=== PATIENT | female | born 1995 | race Caucasian/White ===

== ENCOUNTER 2018-09-01 23:58 | Emergency (ER) | payer BC ==
[~2018-09-01] VITALS: Ht 160 cm; Wt 118.2 kg
[2018-09-02 00:03] VITALS: TEMP 97.9
[2018-09-02 01:23] LABS: BASO # 0.1 (0.0-0.2); BASO % 0.5 % (0.0-2.0); EOS # 0.2 (0.0-0.7); GRAN # 5.7 (1.4-6.5); GRAN % 61.4 % (42.2-75.2); HEMATOCRIT 36.5 % (37.0-47.0); HEMOGLOBIN 11.6 g/dl (12.5-16.0); LYMPH # 2.7 (1.2-3.4); LYMPH % 29.1 % (20.0-51.0); MEAN CELL VOLUME 84 fl (80.0-100.0); MEAN CORPUSCULAR HEMOGLOBIN 27 pg (27.0-31.0); MEAN CORPUSCULAR HGB CONC 32 g/dl (33.0-37.0); MEAN PLATELET VOLUME 9.6 fl (7.4-10.4); MONO # 0.6 (0.1-0.6); MONO % 6.9 % (1.7-9.3); PLATELET COUNT 323 K/mm3 (130-400); RED BLOOD COUNT 4.33 M/mm3 (4.10-5.30)
[2018-09-02 01:45] LABS: ALBUMIN 4.3 gm/dL (3.5-5.0); BILIRUBIN,TOTAL 0.3 mg/dL (0.0-1.0); CALCIUM 8.9 mg/dL (8.4-10.2); CREATININE, serum 0.68 mg/dL (0.52-1.25); MAGNESIUM 2.2 mg/dL (1.6-2.3); PHOSPHOROUS 3.4 mg/dL (2.5-4.5); POTASSIUM 3.5 mmol/L (3.4-5.0); TOTAL PROTEIN 7.7 gm/dL (6.4-8.2)
[2018-09-02 02:14] LABS: TSH w REFLEX 8.8 uIU/mL (0.465-4.680)
[2018-09-02 03:37] VITALS: BP 112/91; PULSE 83
== END 2018-09-02 03:42 | disposition home or self-care (01) ==
LOC: COL.ER 23:58
PROVIDERS: Emergency Medicine
DX: R00.2 Palpitations (principal)
CPT/HCPCS: J7030

== ENCOUNTER 2020-10-08 10:57 | Inpatient (IN) | payer BC ==
[~2020-10-08] VITALS: Ht 167.6 cm; Wt 126.4 kg
[2020-10-08] VITALS (17 sets, daily range): BP systolic 81–139; BP diastolic 37–78; PULSE 69–97; TEMP 97.5–98.3
[2020-10-08] MEDS ORDERED: PRENATAL TABLET PO (11:57)
[2020-10-08] MEDS ORDERED: INDERAL 10MG10 MG PO (11:58)
[2020-10-08 12:15] LABS: BASO % 0.2 % (0.0-2.0); EOS % 0.2 % (0-4.0); GRAN # 9.2 (1.4-6.5); GRAN % 80.8 % (42.2-75.2); LYMPH # 1.6 (1.2-3.4); LYMPH % 14.2 % (20.0-51.0); MEAN CELL VOLUME 93 fl (80.0-100.0); MEAN CORPUSCULAR HEMOGLOBIN 31 pg (27.0-31.0); MEAN CORPUSCULAR HGB CONC 33 g/dl (33.0-37.0); MEAN PLATELET VOLUME 9.6 fl (7.4-10.4); MONO # 0.5 (0.1-0.6); MONO % 4.2 % (1.7-9.3); PLATELET COUNT 336 K/mm3 (130-400); RED BLOOD COUNT 3.85 M/mm3 (4.10-5.30); REDCELL DISTRIBUTION WIDTH-CV 13.2 % (11.5-14.5)
[2020-10-08 12:17] LABS: HEMATOCRIT 35.9 % (37.0-47.0)
[2020-10-08] MEDS ORDERED: IBU800 M1 PO (13:58)
[2020-10-08] MEDS ORDERED: PERCOCET 325 MG1 TA2 PO (13:58)
[2020-10-09 00:15] VITALS: BP 119/62; PULSE 63; TEMP 97.9
[2020-10-09 05:20] VITALS: BP 110/63; PULSE 75; TEMP 97.8
[2020-10-09 06:45] VITALS: BP 119/60; PULSE 68; TEMP 97.3
[2020-10-09 11:40] VITALS: BP 120/47; PULSE 75; TEMP 97.9
== END 2020-10-09 16:00 | disposition home or self-care (01) | DRG 786 ==
LOC: OB 10:57
PROVIDERS: ADMIT Student in an Organized Health Care Education/Training Program
PROC: 10D00Z1 Extraction of Products of Conception, Low, Open Approach (ICD-10-PCS; principal; 2020-10-08)
DX: O41.03X0 Oligohydramnios, third trimester, not applicable or unspecified (principal); O99.42 Diseases of the circulatory system complicating childbirth; I47.1 Supraventricular tachycardia; Z37.0 Single live birth; O32.1XX0 Maternal care for breech presentation, not applicable or unspecified; O99.824 Streptococcus B carrier state complicating childbirth; O99.214 Obesity complicating childbirth; E66.9 Obesity, unspecified; Z3A.36 36 weeks gestation of pregnancy
CPT/HCPCS: J0690; J1885; J2370; J2405; J2590; J7120

== ENCOUNTER → 2020-10-25 | Outpatient (CLI) | payer BC ==
[~2020-10-25] MED LIST: IBU800 M1 PO; INDERAL 10MG10 MG PO; PERCOCET 325 MG1 TA2 PO; PRENATAL TABLET PO
--- NOTE | 2020-10-25 15:42 | NUR ---
Pt, Vanesa Ware, presents for outpatient consult with 17 day old baby girl, Christi Ware, for a evaluation. Pt desires assistance weaning Christi from bottle to . Christi was born on [birth year] at 36 weeks gestation (EDC 11/03/2019). She was subsequestly transfered to [facility]. weight was 5#3.6oz (2370 gms). She was discharged from NICU on 10/20/20 and weighed 5#4oz per pt's statement. She also reports Christi's weight at the first doctor appt on 10/21/20 was 5#6oz. Christi was discharged bottle feeding on EBM. She currently drinks 60-70ml q 3 hours, and pt is pumping ~150ml q 3 hours. Today Christi weighs 5@10.6oz (2568 gms). Pt has been using a size small nipple shield and we start the attempt with the shield. Christi is not very active after the first initial latch attempt. Several attempts performed. LC attempts latch without nipple shield, baby not able to hold nipple in mouth with tongue across the gum line. LC uses gtts of EBM to encourage effort. Pt agrees to standard size shield, baby able to remain latched with larger shield and get milk to transfer easier. After nursing bilaterally (15/20 minutes) Christi has a weight gain of 44gms (1.5oz). She appeared content after feeding. Pt has been working in football hold, LC teaches cross cradle and provides suggestions for support of heavy breast. POC: Breast BID, follow with ~30ml EBM after, continue pumping after . Continue pumping and bottle feeding at other feedings. F/U: Three days, Oct 28, 2020 @ 1400 with this LC. Questions invited and answered.
== END ==
LOC: LAC 11:13
DX: Z39.1 Encounter for care and examination of lactating mother (principal); Z71.89 Other specified counseling

== ENCOUNTER → 2022-11-06 | Outpatient (CLI) | payer BC ==
[2022-11-06 17:20] LABS: BASO % 0.5 % (0.0-2.0); EOS # 0.1 K/mm3 (0.0-0.7); EOS % 0.9 % (0.0-4.0); GRAN % 67.2 % (42.2-75.2); HEMOGLOBIN 11.6 g/dl (12.5-16.0); LYMPH # 2.3 K/mm3 (1.2-3.4); MEAN CELL VOLUME 80 fl (80.0-100.0); MEAN CORPUSCULAR HEMOGLOBIN 26 pg (27-31); MEAN CORPUSCULAR HGB CONC 33 g/dl (33.0-37.0); MEAN PLATELET VOLUME 9.1 fl (7.4-10.4); MONO # 0.5 K/mm3 (0.1-0.6); MONO % 5.2 % (1.7-9.3); PLATELET COUNT 373 K/mm3 (130-400); RED BLOOD COUNT 4.44 M/mm3 (4.10-5.30); REDCELL DISTRIBUTION WIDTH-CV 15.8 % (11.5-14.5)
[2022-11-06 17:38] LABS: HEMATOCRIT 35.5 % (37.0-47.0)
[2022-11-07 18:18] LABS: TB GOLD INTERPRETATION Negative (Negative)
[2022-11-09 13:12] LABS: ANGIOTENSIN CONVERTING ENZYME 29 U/L (16 - 85)
== END ==
LOC: COL.LAB 16:18
DX: H47.10 Unspecified papilledema (principal)

== ENCOUNTER → 2022-12-05 | Outpatient (CLI) | payer BC | LOC: COL.RAD 09:23 | DX: H47.10 Unspecified papilledema (principal) | CPT/HCPCS: A9575 ==